=== PATIENT | male | born 1975 | race Asian ===

== ENCOUNTER 2018-01-22 21:38 | Emergency (ER) | payer SELFPAY ==
[~2018-01-22] VITALS: Ht 172.7 cm; Wt 80.0 kg
[2018-01-22 22:14] VITALS: Ht 172.7 cm; Wt 80.0 kg
[2018-01-23 06:13] VITALS: BP 105/60
== END 2018-01-23 06:13 | disposition home or self-care (01) ==
LOC: ED 21:38
DX: L02.415 Cutaneous abscess of right lower limb (principal)
CPT/HCPCS: 90715; J2001; J3010; Q0092

== ENCOUNTER 2018-01-25 20:03 | Emergency (ER) | payer SELFPAY ==
[~2018-01-25] VITALS: Ht 160 cm; Wt 82.1 kg
[2018-01-25 20:06] VITALS: Ht 160 cm; Wt 82.1 kg
[2018-01-26 01:44] VITALS: BP 116/66
== END 2018-01-26 01:44 | disposition home or self-care (01) ==
LOC: ED 20:03
DX: S81.001D Unspecified open wound, right knee, subsequent encounter (principal); X58.XXXD Exposure to other specified factors, subsequent encounter
CPT/HCPCS: J2001

== ENCOUNTER 2018-01-28 20:12 | Emergency (ER) | payer SELFPAY ==
[~2018-01-28] VITALS: Ht 175.3 cm; Wt 80.7 kg
[2018-01-28 20:14] VITALS: Ht 175.3 cm; Wt 80.7 kg
[2018-01-28 21:25] VITALS: BP 129/84
== END 2018-01-28 21:25 | disposition home or self-care (01) ==
LOC: ED 20:12
DX: Z48.01 Encounter for change or removal of surgical wound dressing (principal)